=== PATIENT | male | born 1995 | race Two or more races ===

== ENCOUNTER 2019-02-12 16:42 | Emergency (ER) | payer OTHER ==
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
[2019-02-12 19:27] VITALS: BP 128/65
== END 2019-02-12 19:26 | disposition home or self-care (01) ==
LOC: ED 16:42
DX: S09.90XA Unspecified injury of head, initial encounter (principal); R68.84 Jaw pain; Y04.2XXA Assault by strike against or bumped into by another person, initial encounter; Y92.149 Unspecified place in prison as the place of occurrence of the external cause; Z79.899 Other long term (current) drug therapy; Z87.891 Personal history of nicotine dependence
CPT/HCPCS: 70450; 70486; 99282